=== PATIENT | female | born 1985 ===

== ENCOUNTER 2018-05-31 10:27 | Outpatient (CLI) | payer OTHER | END 2018-05-31 15:02 | disposition home or self-care (01) | LOC: SONOGRAMA 10:27 | DX: R10.2 Pelvic and perineal pain (principal) ==

== ENCOUNTER 2019-02-12 10:19 | Outpatient (CLI) | payer OTHER | END 2019-02-12 10:31 | disposition home or self-care (01) | LOC: RX STUDY 10:19 | DX: N97.8 Female infertility of other origin (principal) ==